=== PATIENT | female | born 1935 | race Hispanic/Latino ===

== ENCOUNTER 2018-01-17 14:52 | Outpatient (CLI) | payer MEDICARE ==
--- NOTE | 2018-01-17 16:27 | MRI ---
MRI LUMBAR SPINE 01/17/18 HISTORY: Left hip and leg pain, numbness for two months. s Multiplanar and multisequence noncontrast enhanced MRI images lumbar spine obtained. For the purposes of this dictation, the last freely mobile vertebral body will be considered to be th e L4 vertebral body. The lowest thoracic vertebral body which is visualized to have a rib originating from it will be considered to be the T12 vertebral body. This patient appears to have four nonribbearing lumbar type vertebrae which will be numbered L1 throu gh L4 with a transitional type L5 vertebral body seen. T11-12: Unremarkable. T12-L1: Unremarkable. L1-2: Unremarkable. L2-3: Unremarkable. L3-4: There is bilateral facet hypertrophy. This results in mild L3-4 central and lateral recess sten osis. The neural foramen are patent. L4-5: There is grade I anterolisthesis of L4 on L5 with severe facet hypertrophic and degenerative ch anges. This results in facet instability. There is severe central and lateral recess stenosis at L4-5 . There is moderate bilateral neural foraminal narrowing seen. IMPRESSION: L4-5 anterolisthesis with transitional significantly sacralized L5 vertebral level. These findings ar e not acute and likely not due to the patient's recent fall. These changes suggests chronic L4-5 face t degenerative changes. POS: [facility]
== END 2018-01-17 14:53 | disposition home or self-care (01) ==
LOC: BICMRI 14:52
PROVIDERS: ATTEND Family Medicine
DX: M54.5 Low back pain (principal); M43.16 Spondylolisthesis, lumbar region
CPT/HCPCS: 72148

== ENCOUNTER 2018-03-08 15:57 | Observation (INO) | payer MEDICARE ==
[2018-03-08 16:42] LABS: #Basophils 0.1 thou/uL (0.0-0.2); #Eosinphils 0.1 thou/uL (0.0-0.7); #Lymphocytes 2.1 thou/uL (1.20-3.40); #Monocytes 0.4 thou/uL (0.11-0.59); #Neutrophils 3.7 thou/uL (1.40-6.50); %Basophils 1.5 % (0.0-1.0); %Eosinophils 1.9 % (0.0-10.0); %Lymphocytes 32.9 % (21.0-51.0); %Monocytes 6.5 % (0.0-10.0); %Neutrophils 57.2 % (42.0-75.0); Hemoglobin 11.2 g/dL (12.0-16.0); Mean Corpuscular HGB CONC 31.8 g/dL (32.0-36.0); Mean Corpuscular Volume 94.5 fL (78.0-98.0); Mean Platelet Volume 7.5 fL (7.4-10.4); Platelet Count 242 thou/uL (130-400); RBC Distribution Width 14.4 % (11.5-14.5); Red Blood Cell (RBC) Count 3.74 mill/uL (4.20-5.40); White Blood Cell (WBC) Count 6.4 thou/uL (4.8-10.8)
[2018-03-08 16:51] LABS: ALT (SGPT) 15 U/L (8-55); AST (SGOT) 19 U/L (5-34); Albumin 4.2 g/dL (3.4-4.8); Alkaline Phosphatase 60 U/L (40-150); Anion Gap 15 mmol/L (10-20); BUN (Urea Nitrogen) 23 mg/dL (9.8-20.1); Bilirubin, Total 0.3 mg/dL (0.2-1.2); CK (CPK) 72 U/L (29-168); Calc. Creatinine Clearance 0 mL/min (70-130); Calcium 10.9 mg/dL (7.8-10.44); Carbon Dioxide 20 mmol/L (23-31); Chloride 106 mmol/L (98-107); Estimated GFR-MDRD 48; Glucose 160 mg/dL (83-110); Potassium 4.8 mmol/L (3.5-5.1); Protein, Total 7.2 g/dL (6.0-8.3); Sodium 136 mmol/L (136-145)
--- NOTE | 2018-03-08 17:06 | RAD ---
CHEST 1 VIEW: Date: 03/08/18 HISTORY: Chest pain. COMPARISON: 05/30/15. FINDINGS: Cardiac silhouette is magnified by projection. Pulmonary vasculature is unremarkable. Mediastinum mid line with aortic calcification and postoperative changes. No lobar consolidation or evidence of pneum othorax. IMPRESSION: 1. Atherosclerosis. 2. No active cardiopulmonary abnormalities are otherwise demonstrated. POS: [facility]
[2018-03-08] MEDS ORDERED: hydrALAZINE 20 MG/ML VIAL ONE (18:12)
--- NOTE | 2018-03-08 18:49 | PDOC.FPRHP ---
- History of Present Illness Chief Complaint: Heart palpitations History of Present Illness: 83 yo F with PMH HI s/p CABG, DM2, HTN, HLD, hypothyroid presents for evaluation of heart palpitations and HTN. She says she has had intermittent "heart fluttering" x4 days. Not associated w/ exertion. Resolves quickly and spontaneously. Denies CP, SOB, N/V. Says she has had to take "deep breaths" since yesterday and has increased burping. Notes this is similar presentation to 4 yrs ago when she had negative stress test, followed by cath showing 4 vessel disease and then CABG. BP elevated at home today [address] 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 Has had negative stress in past year. No cath since CABG. ED Course: tramadol, ASA, hydralazine 10 - Allergies/Adverse Reactions Allergies Allergy/AdvReac Type Severity Reaction Status Date / Time No Known Drug Allergies Allergy Verified 03/08/18 20:53 - Home Medications Medication Instructions Recorded Confirmed Type Brimonidine Tartrate [Brimonidine 1 drop R EYE BID 05/27/15 03/08/18 History Tartrate 0.15% Ophth Soln] Dorzolamide HCl/Timolol Maleat 1 drop R EYE BID 05/27/15 03/08/18 History [Dorzolamide HCl/Timolol Maleate Ophth] Latanoprost [Xalatan 0.005% Ophth 1 drop EA EYE HS 05/27/15 03/08/18 History Soln] Lisinopril [Zestril] 5 mg PO DAILY 05/27/15 03/08/18 History metFORMIN [Glucophage] 500 mg PO HS 05/27/15 03/08/18 History Aspirin [Ecotrin Regular Strength] 325 mg PO DAILY #0 tab 06/02/15 03/08/18 Rx Metoprolol Tartrate [Lopressor] 25 mg PO BID #0 tab 06/02/15 03/08/18 Rx Atorvastatin Calcium 20 mg PO HS 03/08/18 03/08/18 History Cyanocobalamin (Vitamin B-12) 1,500 mcg PO DAILY 03/08/18 03/08/18 History [Vitamin B-12] Levothyroxine Sodium 50 mcg PO DAILY 03/08/18 03/08/18 History - History PMHx: DM2, HLD, HTN, osteoporosis, CAD, HI 4 yrs ago, slipped disk, hypothyroid , glaucoma PSHx: cholecystectomy, hysterectomy, appendectomy, cataracts, CABG FHx: Brother-CAD/HI, CAD, DM, HTN on maternal side Social: No tobacco, alcohol, drug use. 47 years second hand smoke exposure - Review of Systems General: denies: fever/chills Respiratory: reports: shortness of breath. denies: cough Cardiovascular: reports: palpitation. denies: chest pain, edema Gastrointestinal: reports: other (burping). denies: nausea, vomiting, diarrhea , abdominal pain Skin: reports: other (easy bruising). denies: rashes Neurological: reports: other (tingling in legs). denies: weakness - Vital signs BP: 122/55 HR: 67 RR: 16 Tmax: 98 Pox: 98% on RA Wt: 51 kg - Physical Exam Constitutional: NAD, awake, alert and oriented HEENT: normocephalic and atraumatic Neck: trachea midline Heart: normal S1/S2, other (3/6 systolic murmur heard best @ mitral) Lungs: CTAB Abdomen: soft, non-tender, bowel sounds present Musculoskeletal: normal structure, normal tone Neurological: no focal deficit Skin: no rash/lesions, other Heme/Lymphatic: other (scattered bruises on UE) Psychiatric: normal mood and affect FMR H&P: Results - Labs Result Diagrams: 03/09/18 04:45 03/09/18 12:30 Lab results: WBC 6.4 thou/uL (4.8-10.8) 03/08/18 16:17 Hgb 11.2 g/dL (12.0-16.0) L 03/08/18 16:17 Hct 35.4 % (36.0-47.0) L 03/08/18 16:17 MCV 94.5 fL (78.0-98.0) 03/08/18 16:17 Plt Count 242 thou/uL (130-400) 03/08/18 16:17 Neutrophils % 57.2 % (42.0-75.0) 03/08/18 16:17 Sodium 136 mmol/L (136-145) 03/08/18 16:17 Potassium 4.8 mmol/L (3.5-5.1) 03/08/18 16:17 Chloride 106 mmol/L (98-107) 03/08/18 16:17 Carbon Dioxide 20 mmol/L (23-31) L 03/08/18 16:17 BUN 23 mg/dL (9.8-20.1) H 03/08/18 16:17 Creatinine 1.10 mg/dL (0.6-1.1) 03/08/18 16:17 Glucose 160 mg/dL (83-110) H 03/08/18 16:17 Calcium 10.9 mg/dL (7.8-10.44) H 03/08/18 16:17 Total Bilirubin 0.3 mg/dL (0.2-1.2) 03/08/18 16:17 AST 19 U/L (5-34) 03/08/18 16:17 ALT 15 U/L (8-55) 03/08/18 16:17 Alkaline Phosphatase 60 U/L (40-150) 03/08/18 16:17 Creatine Kinase 72 U/L (29-168) 03/08/18 16:17 Serum Total Protein 7.2 g/dL (6.0-8.3) 03/08/18 16:17 Albumin 4.2 g/dL (3.4-4.8) 03/08/18 16:17 FMR H&P: A/P - Problem List (1) Intermittent palpitations Status: Acute Code(s): R00.2 - PALPITATIONS (2) Hypothyroid Status: Acute Code(s): E03.9 - HYPOTHYROIDISM, UNSPECIFIED (3) CAD (coronary artery disease) Status: Acute Code(s): I25.10 - ATHSCL HEART DISEASE OF [place] CORONARY ARTERY W/O ANG PCTRS (4) Anemia Status: Acute Code(s): D64.9 - ANEMIA, UNSPECIFIED Qualifiers: Other causes of anemia: acute posthemorrhagic Comment: s/p 1 unit PRBC, continue to monitor transfuse prn (5) Glaucoma Status: Acute Code(s): H40.9 - UNSPECIFIED GLAUCOMA Comment: Home eye drops restarted (6) S/P CABG x 4 Status: Acute (7) HTN (hypertension) Status: Chronic Code(s): I10 - ESSENTIAL (PRIMARY) HYPERTENSION (8) Type 2 diabetes mellitus Status: Chronic Comment: Insulin sliding scale/levemir, close glucose monitoring. - Plan Heart palpitations, ACS rule out - Heart score 6 with significant PMH of CAD - No CP. EKG NSR. - trop neg x1, continue to trend - continuous cardiac monitoring on telemetry - pending d-dimer, TSH, mag, phos. Already on high intensity statin, will not repeat FLP. - has heart murmur, unknown when last echo performed - NPO @ midnight. Hold home BB. 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 Pt says she has had stress test within past year. Will discuss further workup with cardiology consult in am. Normocytic anemia - Hgb 11 - monitor on am CBC CAD s/p CABG 4 yrs ago - continue home statin, aspirin HTN - BP elevated in ED 198/78, decreased quickly with hydralazine 10. No end organ damage - continue home lisinopril, hold home metoprolol for now DM2 - continue home metformin Hypothyroid - continue home synthroid Glaucoma - continue home opthalmic drops Diet: NPO after midnight Ppx: Lovenox Dispo: admit to telemetry for observation, ACS rule out FMR H&P: Upper Level - Pertinent history 83 y/o F w/ PMHx of HTN, DM, HLD, SVT, and CAD w/ prior HI presents for eval of sxs of palpitations that started this past Tuesday which are similar to sxs she had prior to her previous HI and subsequent CABG. Denies any CP. Reports some intermittent SOB which is new for her that started yesterday. Denies any nausea/ vomitting/abdominal pain/diarrhea. Notes having to burp a lot. Also reports elevated BP prompting visit to the ER tonight. Reportedly SBP up to 215 and was 195 in the ER prior to admin of hydralazine. Also notes LE pain and hip pain. Sxs are intermittent in nature. Not exacerbated by movement. No relieving factors. Reports normal stress test within the past year. Also had normal stress prior to 4 vz disease found on cardiac catheterization. Reports recent echo and stress w/ linoleum installer Dr. Mae within the past year. - Pertinent findings BP 145/60 P 87 RR 19 O2sat 99% Trop - <0.01 Hgb - 11,2 MCV -94.5 Gluc - 160 Calc - 10.9 EKG - NSR rate 67, no t-wave inversions noted. Mild upward sloping ST-segments lead I and aVL w/o overt elevation consistent w/ strain. Q-waves Leads I and aVL CXR - Atherosclerosis. Otherwise NAD GEN: NAD, resting in bed comfortable CARD: RRR, 3/6 systolic ejection murmur all heart johnson. No rubs or gallops PULM: CTA-b/l, no wheezes rubs or rhonci GI: Soft, non-tender to palpation BSx4 EXT: No LE swelling noted. No palpable cords. - Plan Date/Time: 03/08/18 898 IFrancisco J MD, have evaluated this patient and agree with findings/plan as outlined by network internship resident. Pertinent changes/additions are listed here. 83 y/o F w/: 1) Atypical Chest Pain (HEART = 6) - No evidence of acute ischemia w/ normal cardiac enzymes and no signs of ischemia on EKG - Pt w/ multiple risk factors including known CAD, HTN, HLD, FHx, and DM - Pt does have palpitations w/ burping consistent w/ possible underlying dysarrythmias - Will monitor for this on continuous telemetry on the obs floor - No alarm sxs w/ no worsening w/ activity - Will touch base w/ cardiology in the AM to discuss repeat stress vs cardiac catheterization given normal stress recently per patient - Will check TSH, A1c, and mag/phos given palpitations - Cont. to trend cardiac enzymes w/ cardiac consultation in the AM - Will hold beta fela in the AM pending possible stress and make pt NPO 2) Other chronic problems per network internship note Assessment and Plan discussed w/ Dr. Wallace who is in agreement. Addendum - Attending - Attending Attestation Date/Time: 03/08/18 5320 I personally evaluated the patient and discussed the management with Dr. Howard and Dr. Billingsley I agree with the History, Examination, Assessment and Plan documented above with any addition or exceptions noted below. 83 yo female with past medical history of CAD s/p CABG presents with palpitations. Patient reports several days of intermittent palpitations. Patient states she is very active with daily activities. Denies CP, BEEBE, SOB, fatigue, or dizziness. Reports the only thing that slows her down is her back pain. Denies dizziness or other associated symptoms with palpitations. Concern due to past presentation with similar symptoms and diagnosed with HI. Patient states prior to that episode she underwent CV evaluation with negative stress. Presented with palpitations. Underwent LHC and was found to have 4V dz. Anxious that this is a similar picture. Reports up to date on cardiac evaluation included ECHO and negative stress testing recently. VS reviewed. Labs reviewed. Imaging reviewed. PE repeated by me. Agree with documentation above. 1. Palpitations with concern for ACS: EKG reviewed. Q waves in lateral leads. Mild ST depression (no significant) representing stress pattern as well in these leads. Negative CE x 1. No arrhythmia on tele. Will obs overnight. Monitor on tele. Trend enzymes. Discuss case with cards in AM. Heart = 6. Consider home event monitor. TSH WNL. 2. hx of CAD: Continue BB, ACEI, Statin, ASA. Adjust home meds based on chronic conditions. Iesha
[2018-03-08] MEDS ORDERED: traMADol HCl 50 MG TAB ONE (19:03)
[2018-03-08] MEDS ORDERED: Acetaminophen 325 MG TAB ONE (19:19)
[2018-03-08] MEDS ORDERED: Acetaminophen 325 MG TAB PO PRN (20:38)
[2018-03-08] MEDS ORDERED: Ondansetron ODT 4 MG TAB PO PRN (20:38)
[2018-03-08 21:04] VITALS: BMI 25.2
[2018-03-08 22:19] LABS: Hemoglobin A1c 6.6 % (4.0-6.0)
[2018-03-08 22:33] LABS: Magnesium 1.4 mg/dL (1.6-2.6); Phosphorus 2.5 mg/dL (2.3-4.7)
[2018-03-09 05:06] LABS: #Basophils 0.1 thou/uL (0.0-0.2); #Eosinphils 0.1 thou/uL (0.0-0.7); #Monocytes 0.6 thou/uL (0.11-0.59); #Neutrophils 4.1 thou/uL (1.40-6.50); %Basophils 0.9 % (0.0-1.0); %Eosinophils 1.7 % (0.0-10.0); %Lymphocytes 28.9 % (21.0-51.0); %Monocytes 8.7 % (0.0-10.0); %Neutrophils 59.8 % (42.0-75.0); Hemoglobin 10.6 g/dL (12.0-16.0); Mean Corpuscular HGB CONC 32.2 g/dL (32.0-36.0); Mean Corpuscular Hemoglobin 30.3 pg (27.0-31.0); Mean Corpuscular Volume 94.1 fL (78.0-98.0); Platelet Count 241 thou/uL (130-400); RBC Distribution Width 14.2 % (11.5-14.5); Red Blood Cell (RBC) Count 3.49 mill/uL (4.20-5.40); White Blood Cell (WBC) Count 6.8 thou/uL (4.8-10.8)
[2018-03-09 05:34] LABS: Anion Gap 12 mmol/L (10-20); BUN (Urea Nitrogen) 25 mg/dL (9.8-20.1); Calc. Creatinine Clearance 32 mL/min (70-130); Calcium 10.8 mg/dL (7.8-10.44); Carbon Dioxide 20 mmol/L (23-31); Chloride 111 mmol/L (98-107); Estimated GFR-MDRD 46; Glucose 111 mg/dL (83-110); Potassium 5.3 mmol/L (3.5-5.1); Sodium 138 mmol/L (136-145)
[2018-03-09] MEDS ORDERED: Levothyroxine Sodium 50 MCG TAB PO SCH (06:00)
[2018-03-09] MEDS ORDERED: Lactated Ringer's 1,000 ML IV SCH (06:30)
--- NOTE | 2018-03-09 06:34 | PDOC.FM ---
Addendum entered and electronically signed by Concepcion Whyte MD 03/09/18 09:30 : Plan: -Hypomag at 1.4, replaced. Original Note: - Subjective Subjective: NAEO. No palpitations. NO other complaints. NO wekaness. - Objective MAR Reviewed: Yes Vital Signs & Weight: Vital Signs (12 hours) Temp Pulse Resp BP Pulse Ox 03/09/18 04:52 98.9 F 74 14 142/64 H 100 03/08/18 23:33 98.5 F 76 18 101/52 L 94 L 03/08/18 20:07 97.9 F 88 17 116/53 L 98 Weight Weight 52.844 kg I&O: 03/07/18 03/08/18 03/09/18 06:59 06:59 06:59 Intake Total 360 Output Total 400 Balance -40 Result Diagrams: 03/09/18 04:45 03/09/18 12:30 Phys Exam - Physical Examination Constitutional: NAD HEENT: PERRLA, moist MMs Respiratory: no wheezing, clear to auscultation bilateral Cardiovascular: RRR, no significant murmur, no rub Neurological: non-focal, moves all 4 limbs Psychiatric: normal affect, A&O x 3 Dx/Plan (1) Type 2 diabetes mellitus Status: Chronic (2) Dyslipidemia Code(s): E78.5 - HYPERLIPIDEMIA, UNSPECIFIED Status: Chronic (3) HTN (hypertension) Code(s): I10 - ESSENTIAL (PRIMARY) HYPERTENSION Status: Chronic (4) Anemia Code(s): D64.9 - ANEMIA, UNSPECIFIED Status: Acute Qualifiers: Other causes of anemia: acute posthemorrhagic (5) S/P CABG x 4 Status: Acute (6) Intermittent palpitations Code(s): R00.2 - PALPITATIONS Status: Acute (7) Hypothyroid Code(s): E03.9 - HYPOTHYROIDISM, UNSPECIFIED Status: Acute (8) CAD (coronary artery disease) Code(s): I25.10 - ATHSCL HEART DISEASE OF [place] CORONARY ARTERY W/O ANG PCTRS Status: Acute - Plan Plan: 83 yo F with hypothyroidism, CAD s/p CABG x4, HTN, HLD, DM2 with new onset heart palpitations. Heart palpitations, ACS rule out - Heart score 6 with significant PMH of CAD as listed above - Per pt recent stress test and echo within last year that were normal, follows w/ Dr. Mae - neg trop x3 - continuous cardiac monitoring on telemetry, no events overnight - has heart murmur, unknown when last echo performed - NPO @ midnight. Hold home BB. 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 Pt says she has had stress test within past year. Will discuss with this morning stress vs. cath vs. medical mgmt - Pending CTA due to elevated ddimer TRI -likely prerenal -start on mIVF NS Hyperkalemia -5.3 -fluids -repeat base met Hypercalcemia -fluids, will trend Normocytic anemia - Hgb 11 - monitor on am CBC CAD s/p CABG 4 yrs ago - continue home statin, aspirin HTN - BP elevated in ED 198/78, decreased quickly with hydralazine 10 - continue home lisinopril, hold home metoprolol for now Dyslipidemia - see above DM2 - A1c 6.6 - continue home metformin Hypothyroid - continue home synthroid Glaucoma - continue home opthalmic drops Diet: NPO after Ppx: Lovenox Dispo: Will call cardiology for further recommendations. Pending CTA to r/o aortic dissection due to elevtaed ddimer. Hyperkalemia, will give fluids, repeat base met. Addendum - Attending - Attending Attestation Date/Time: 03/09/18 1501 I personally evaluated the patient and discussed the management with Dr. Whyte. Patient asymptomatic this morning and wanting to go home. I agree with the History, Examination, Assessment and Plan documented above with any addition or exceptions noted below. Palpitations- similar to when she was dx with CAD and required CABG- resolved overnight. No anomalies on telemetry. Appreciate cards recs Mild hyperkalemia and hypercalcemia- IVF and recheck improved. Stable for d/c pending cardiology recs.
[2018-03-09] MEDS ORDERED: Brimonidine Tartrate 0.2% Ophth Soln 5 ml Bottle R EYE SCH (09:00)
[2018-03-09] MEDS ORDERED: Lisinopril 5 MG TAB PO SCH (09:00)
[2018-03-09] MEDS ORDERED: Cyanocobalamin (Vitamin B-12) 1,000 MCG TAB PO SCH (09:00)
[2018-03-09] MEDS ORDERED: DorzolamidE/Timolol 2%/0.5% Ophth Soln 10 ml Bottle R EYE SCH (09:00)
[2018-03-09] MEDS ORDERED: Enoxaparin Sodium 40 MG/0.4 ML SYRINGE SC SCH (09:00)
[2018-03-09] MEDS ORDERED: Aspirin 325 mg Enteric Coated Tablet PO SCH (09:00)
[2018-03-09] MEDS ORDERED: Sodium Chloride 0.9% 1,000 ML IV SCH (09:30)
[2018-03-09] MEDS ORDERED: Iopamidol 370 76% 100 ML VIAL ONE (10:18)
[2018-03-09 10:32] LABS: Cardiac Risk 2.5 (Less than 4.5)
--- NOTE | 2018-03-09 10:34 | CT ---
CTA CHEST WITH CONTRAST: Multiple axial tomograms were obtained through the chest following a pulmonary angio protocol with mu ltiplanar reconstruction and 3D post processing. INDICATION: Elevated D-dimer. Shortness of breath. Assess for pulmonary embolus. FINDINGS: Pulmonary arteries show adequate opacification. There is no evidence of pulmonary embolus identified . Thoracic aorta shows atherosclerotic change. No evidence of aneurysm or dissection. The lung johnson show chronic parenchymal changes. No evidence of infiltrate or effusion. Mediastinum unremarkable. No adenopathy. Images through the upper abdomen unremarkable. Osseous structures unremarkable. IMPRESSION: 1. No evidence of pulmonary embolus. 2. No acute lung process. POS: [facility]
[2018-03-09 12:12] VITALS: BP 112/56; TEMP 98.8
[2018-03-09 12:51] LABS: Anion Gap 12 mmol/L (10-20); BUN (Urea Nitrogen) 20 mg/dL (9.8-20.1); Calc. Creatinine Clearance 37 mL/min (70-130); Calcium 9.6 mg/dL (7.8-10.44); Carbon Dioxide 20 mmol/L (23-31); Chloride 111 mmol/L (98-107); Estimated GFR-MDRD 55; Glucose 91 mg/dL (83-110); Potassium 4.8 mmol/L (3.5-5.1); Sodium 138 mmol/L (136-145)
[2018-03-09] MEDS ORDERED: Atorvastatin Calcium 20 MG TAB PO SCH ×2 (21:00)
[2018-03-09] MEDS ORDERED: Latanoprost 0.005% Ophth Soln 2.5 ml Bottle EA EYE SCH (21:00)
[2018-03-09] MEDS ORDERED: metFORMIN 500 MG TAB PO SCH (21:00)
--- NOTE | 2018-03-11 23:34 | EKG ---
Test Reason : Blood Pressure : / mmHG Vent. Rate : 067 BPM Atrial Rate : 067 BPM P-R Int : 178 ms QRS Dur : 092 ms QT Int : 378 ms P-R-T Axes : 023 -15 033 degrees QTc Int : 399 ms Normal sinus rhythm Possible Lateral infarct , age undetermined Abnormal ECG Confirmed by INOCENCIO LEVI DO ([id number]), editor farm journal JOSE TAVERAS ([id number]) on 03/11/2018 11:33:30 PM Referred By: Confirmed By:INOCENCIO LEVI DO
== END 2018-03-09 16:22 | disposition home or self-care (01) ==
LOC: ERS 15:57 → 2SW 18:34
PROVIDERS: ADMIT Student in an Organized Health Care Education/Training Program; ATTEND Student in an Organized Health Care Education/Training Program
DX: R00.2 Palpitations (principal); E03.9 Hypothyroidism, unspecified; I25.10 Atherosclerotic heart disease of native coronary artery without angina pectoris; I25.2 Old myocardial infarction; I10 Essential (primary) hypertension; E78.5 Hyperlipidemia, unspecified; R07.89 Other chest pain; M81.0 Age-related osteoporosis without current pathological fracture; H40.9 Unspecified glaucoma; D62 Acute posthemorrhagic anemia; N17.9 Acute kidney failure, unspecified; E11.9 Type 2 diabetes mellitus without complications; E83.52 Hypercalcemia; E87.5 Hyperkalemia; Z79.82 Long term (current) use of aspirin; Z79.84 Long term (current) use of oral hypoglycemic drugs; Z79.899 Other long term (current) drug therapy; Z77.22 Contact with and (suspected) exposure to environmental tobacco smoke (acute) (chronic); Z95.1 Presence of aortocoronary bypass graft
CPT/HCPCS: 71045; 71275; 80048 ×2; 80061; 82310; 82550; 82962; 83036; 83735; 83880; 83970; 84100; 84484 ×2; 85025; 85379; 93005; 94760 ×2; 96361; 96372; 96374; 99285; G0378 ×2; 36415; 36416; 80053; 84443; J0360; J1650; J3475; J7050; Q9967

== ENCOUNTER 2018-03-20 08:51 | Outpatient (CLI) | payer MEDICARE ==
--- NOTE | 2018-03-20 10:36 | BD ---
DEXA BONE DENSITY STUDY: History: Post-menopausal. Lumbar Spine: BMD (g/cm2) L1 0.856 T-Score: -1.2 L2 0.785 T-Score: -2.2 L3 0.802 T-Score: -2.6 L4 0.791 T-Score: -2.5 L1-L4 0.809 T-Score: -2.2 Femoral Neck: 0.554 T-Score: -2.7 Total Femur: 0.716 T-Score: -1.9 Impression: Osteoporosis left femoral neck and osteopenia of the lumbar spine. Of note, the L3 and L4 vertebral b odies fall within osteoporosis range. POS: [facility]
== END 2018-03-20 08:52 | disposition home or self-care (01) ==
LOC: BICMAMMO 08:51
PROVIDERS: ATTEND Internal Medicine Rheumatology
DX: M81.0 Age-related osteoporosis without current pathological fracture (principal); M85.88 Other specified disorders of bone density and structure, other site
CPT/HCPCS: 77080

== ENCOUNTER 2018-11-08 15:12 | Outpatient (CLI) | payer MEDICARE ==
--- NOTE | 2018-11-08 15:50 | ULT ---
LIMITED LEFT LOWER LEG ULTRASOUND: DATE: 11/08/2018. PROVIDED CLINICAL HISTORY: Left foreleg mass. FINDINGS: Limited sonographic interrogation of the left foreleg in the region of clinical concern demonstrates no evidence for a focal fluid collection or solid mass. If there is consistent clinical concern, con welfare administrator MRI. IMPRESSION: As above. POS: [facility]
== END 2018-11-08 15:13 | disposition home or self-care (01) ==
LOC: BICULT 15:12
PROVIDERS: ATTEND Specialist
DX: D17.24 Benign lipomatous neoplasm of skin and subcutaneous tissue of left leg (principal)
CPT/HCPCS: 76999

== ENCOUNTER 2019-12-10 21:40 | Emergency (ER) | payer MEDICARE ==
[2019-12-10 22:10] LABS: #Eosinphils 0.2 thou/uL (0.0-0.7); #Lymphocytes 2.7 thou/uL (1.20-3.40); #Monocytes 0.6 thou/uL (0.11-0.59); %Basophils 0.4 % (0.0-1.0); %Eosinophils 2.9 % (0.0-10.0); %Lymphocytes 36.2 % (21.0-51.0); %Monocytes 7.7 % (0.0-10.0); %Neutrophils 52.8 % (42.0-75.0); Hemoglobin 11.1 g/dL (12.0-16.0); Mean Corpuscular HGB CONC 33.5 g/dL (32.0-36.0); Mean Corpuscular Hemoglobin 31.7 pg (27.0-31.0); Mean Corpuscular Volume 94.7 fL (78.0-98.0); Mean Platelet Volume 7.1 fL (7.4-10.4); Platelet Count 266 thou/uL (130-400); RBC Distribution Width 14.9 % (11.5-14.5); Red Blood Cell (RBC) Count 3.49 mill/uL (4.20-5.40); White Blood Cell (WBC) Count 7.6 thou/uL (4.8-10.8)
[2019-12-10 22:35] LABS: ALT (SGPT) 13 U/L (8-55); AST (SGOT) 21 U/L (5-34); Albumin 4.1 g/dL (3.4-4.8); Alkaline Phosphatase 64 U/L (40-110); Anion Gap 13 mmol/L (10-20); BUN (Urea Nitrogen) 22 mg/dL (9.8-20.1); Bilirubin, Total 0.3 mg/dL (0.2-1.2); Calc. Creatinine Clearance 0 mL/min (70-130); Calcium 10.7 mg/dL (7.8-10.44); Carbon Dioxide 21 mmol/L (23-31); Chloride 108 mmol/L (98-107); Estimated GFR-MDRD 43; Globulin 2.8 g/dL (2.4-3.5); Glucose 93 mg/dL (83-110); Magnesium 1.4 mg/dL (1.6-2.6); Potassium 4.4 mmol/L (3.5-5.1); Protein, Total 6.9 g/dL (6.0-8.3); Sodium 138 mmol/L (136-145)
[2019-12-10 23:49] LABS: Bilirubin Negative (Negative); Blood, Urine Negative (Negative); Clarity Clear (Clear); Glucose, Urine (Dipstick) Normal (Negative); Ketone, Urine Negative (Negative); Leukocyte 500 Leu/uL (Negative); Nitrite Negative (Negative); Protein, Urine (Dipstick) Negative (Neg-Trace); RBC/HPF 0-3 HPF (0-3); Specific Gravity, Urine 1.008 (1.002-1.036); Squamous Epithelial 0-3 HPF (0-3); Urobilinogen Normal mg/dL (Less than 2); pH, Urine 5.5 (5.0-9.0)
[2019-12-10 23:51] LABS: Bacteria/HPF 1+ HPF (None Seen)
--- NOTE | 2019-12-11 05:41 | RAD ---
PORTABLE CHEST: Date: 12/10/2019 INDICATION: Palpitations. COMPARISON: 03/08/2018. FINDINGS: Mild cardiomegaly with postop sternotomy change. Mild vascular engorgement. Mild interstitial congest ion without overt edema. No effusion. No infiltrate. IMPRESSION: Cardiomegaly and mild vascular congestion. POS: [facility]
== END 2019-12-11 00:23 | disposition home or self-care (01) ==
LOC: ERS 21:40
DX: R00.2 Palpitations (principal); R00.1 Bradycardia, unspecified; T50.905A Adverse effect of unspecified drugs, medicaments and biological substances, initial encounter; E83.42 Hypomagnesemia; N39.0 Urinary tract infection, site not specified; E11.9 Type 2 diabetes mellitus without complications; E78.5 Hyperlipidemia, unspecified; E78.00 Pure hypercholesterolemia, unspecified; I10 Essential (primary) hypertension; M81.0 Age-related osteoporosis without current pathological fracture; Z79.84 Long term (current) use of oral hypoglycemic drugs; Z79.82 Long term (current) use of aspirin; Z79.899 Other long term (current) drug therapy
CPT/HCPCS: 36415; 71045; 80053; 81003; 81015; 83735; 83880; 84443; 84484; 85025; 93005

== ENCOUNTER 2021-05-25 20:35 | Observation (INO) | payer MEDICARE ==
[2021-05-25 21:21] LABS: #Basophils 0.1 thou/uL (0.0-0.2); #Eosinphils 0.3 thou/uL (0.0-0.7); #Lymphocytes 2.3 thou/uL (1.20-3.40); #Monocytes 0.7 thou/uL (0.11-0.59); #Neutrophils 3.4 thou/uL (1.40-6.50); %Eosinophils 3.8 % (0.0-10.0); %Lymphocytes 34.7 % (21.0-51.0); %Monocytes 10.3 % (0.0-10.0); %Neutrophils 50.2 % (42.0-75.0); Hemoglobin 11.2 g/dL (12.0-16.0); Mean Corpuscular HGB CONC 33.4 g/dL (32.0-36.0); Mean Corpuscular Hemoglobin 34.1 pg (27.0-31.0); Mean Platelet Volume 6.6 fL (7.4-10.4); Platelet Count 267 thou/uL (130-400); RBC Distribution Width 12.3 % (11.5-14.5); Red Blood Cell (RBC) Count 3.28 mill/uL (4.20-5.40); White Blood Cell (WBC) Count 6.7 thou/uL (4.8-10.8)
[2021-05-25 21:35] LABS: ALT (SGPT) 11 U/L (8-55); AST (SGOT) 17 U/L (5-34); Albumin 4.3 g/dL (3.4-4.8); Alkaline Phosphatase 118 U/L (40-110); Anion Gap 14 mmol/L (10-20); BUN (Urea Nitrogen) 24 mg/dL (9.8-20.1); Bilirubin, Total 0.3 mg/dL (0.2-1.2); Calc. Creatinine Clearance 0 mL/min (70-130); Calcium 10.5 mg/dL (7.8-10.44); Carbon Dioxide 21 mmol/L (23-31); Chloride 106 mmol/L (98-107); Globulin 2.8 g/dL (2.4-3.5); Glucose 113 mg/dL (83-110); Potassium 5.1 mmol/L (3.5-5.1); Protein, Total 7.1 g/dL (5.8-8.1); Sodium 136 mmol/L (136-145)
[2021-05-25] MEDS ORDERED: Acetaminophen 325 MG TAB PO PRN (22:46)
[2021-05-25] MEDS ORDERED: Calcium Carbonate 500 MG ChewTAB PO PRN (22:46)
[2021-05-25 23:34] VITALS: BMI 24.0
[2021-05-25] MEDS ORDERED: hydrALAZINE 20 MG/ML VIAL SLOW IVP PRN (23:37)
[2021-05-25] MEDS: Lidocaine 5% Patch TD SCH (23:38)
[2021-05-26 00:45] LABS: Magnesium 2.2 mg/dL (1.6-2.6)
[2021-05-26 01:10] LABS: Troponin I Less than 0.010 ng/mL (< 0.028)
[2021-05-26 05:01] LABS: #Eosinphils 0.2 thou/uL (0.0-0.7); #Lymphocytes 2.1 thou/uL (1.20-3.40); #Monocytes 0.8 thou/uL (0.11-0.59); %Basophils 0.4 % (0.0-1.0); %Eosinophils 3.4 % (0.0-10.0); %Lymphocytes 29.2 % (21.0-51.0); %Monocytes 11.4 % (0.0-10.0); %Neutrophils 55.7 % (42.0-75.0); Hemoglobin 10.3 g/dL (12.0-16.0); Mean Corpuscular HGB CONC 32.4 g/dL (32.0-36.0); Mean Corpuscular Hemoglobin 33.3 pg (27.0-31.0); Mean Platelet Volume 6.6 fL (7.4-10.4); Platelet Count 269 thou/uL (130-400); RBC Distribution Width 12.4 % (11.5-14.5); Red Blood Cell (RBC) Count 3.08 mill/uL (4.20-5.40); White Blood Cell (WBC) Count 7.2 thou/uL (4.8-10.8)
[2021-05-26 05:15] LABS: ALT (SGPT) 10 U/L (8-55); AST (SGOT) 14 U/L (5-34); Albumin 3.6 g/dL (3.4-4.8); Alkaline Phosphatase 88 U/L (40-110); Anion Gap 11 mmol/L (10-20); BUN (Urea Nitrogen) 23 mg/dL (9.8-20.1); Bilirubin, Total 0.3 mg/dL (0.2-1.2); Calc. Creatinine Clearance 24 mL/min (70-130); Calcium 9.9 mg/dL (7.8-10.44); Carbon Dioxide 21 mmol/L (23-31); Chloride 112 mmol/L (98-107); Globulin 2.3 g/dL (2.4-3.5); Glucose 98 mg/dL (83-110); Potassium 5.2 mmol/L (3.5-5.1); Protein, Total 5.9 g/dL (5.8-8.1); Sodium 139 mmol/L (136-145)
[2021-05-26] MEDS: Levothyroxine Sodium 50 MCG TAB PO SCH (05:56)
[2021-05-26 07:05] LABS: Magnesium 2.1 mg/dL (1.6-2.6)
[2021-05-26 07:17] LABS: Phosphorus 1.7 mg/dL (2.3-4.7)
[2021-05-26] MEDS ORDERED: Lisinopril 5 MG TAB PO SCH (09:00)
[2021-05-26] MEDS: Enoxaparin Sodium 30 MG/0.3 ML SYRINGE SC SCH (09:00)
[2021-05-26] MEDS ORDERED: Sodium Phosphate 15 MMOL in Sodium Chloride 0.9% 250 ML 250 ML IVPB SCH (09:00)
[2021-05-26] MEDS: Aspirin 325 mg Enteric Coated Tablet PO SCH (09:00)
[2021-05-26] MEDS ORDERED: Metoprolol Tartrate 25 MG TAB PO SCH (09:00)
[2021-05-26 11:49] LABS: SARS-CoV-2 PCR by NAA Not Detected (NotDetected)
[2021-05-26] MEDS: Transdermal Patch Removal TOP SCH (12:00)
[2021-05-26] MEDS: DorzolamidE/Timolol 2%/0.5% Ophth Soln 10 ml Bottle R EYE SCH ×2 (14:11→23:20)
[2021-05-26] MEDS: Cyanocobalamin (Vitamin B-12) 1,000 MCG TAB PO SCH (14:21)
[2021-05-26] MEDS ORDERED: metFORMIN 500 MG TAB PO SCH (21:00)
[2021-05-26] MEDS ORDERED: Latanoprost 0.005% Ophth Soln 2.5 ml Bottle EA EYE SCH (21:00)
[2021-05-26] MEDS ORDERED: Atorvastatin Calcium 20 MG TAB PO SCH (21:00)
[2021-05-26] MEDS: Lidocaine 5% Patch TD SCH (23:21)
[2021-05-27] MEDS: Levothyroxine Sodium 50 MCG TAB PO SCH (05:40)
[2021-05-27] MEDS: Cyanocobalamin (Vitamin B-12) 1,000 MCG TAB PO SCH (07:39)
[2021-05-27] MEDS: Aspirin 325 mg Enteric Coated Tablet PO SCH (07:39)
[2021-05-27] MEDS: DorzolamidE/Timolol 2%/0.5% Ophth Soln 10 ml Bottle R EYE SCH (07:41)
[2021-05-27] MEDS: Enoxaparin Sodium 30 MG/0.3 ML SYRINGE SC SCH (07:41)
[2021-05-27 11:47] LABS: Anion Gap 14 mmol/L (10-20); BUN (Urea Nitrogen) 25 mg/dL (9.8-20.1); Calc. Creatinine Clearance 24 mL/min (70-130); Calcium 9.8 mg/dL (7.8-10.44); Carbon Dioxide 17 mmol/L (23-31); Chloride 110 mmol/L (98-107); Glucose 128 mg/dL (83-110); Magnesium 1.8 mg/dL (1.6-2.6); Phosphorus 2.5 mg/dL (2.3-4.7); Potassium 5.1 mmol/L (3.5-5.1); Sodium 136 mmol/L (136-145)
[2021-05-27 11:49] VITALS: BP 114/52; TEMP 97.9
[2021-05-27] MEDS ORDERED: Magnesium 2 GM/50 ML 2 GM in Premix Bag 1 BAG IVPB SCH (12:15)
[2021-05-27] MEDS: Transdermal Patch Removal TOP SCH (12:49)
[2021-05-28 14:14] LABS: A/G Ratio 1.3 (0.7-1.7); Albumin 3.4 g/dL (2.9-4.4); Alpha 1 0.2 g/dL (0.0-0.4); Alpha 2 0.8 g/dL (0.4-1.0); Beta 0.9 g/dL (0.7-1.3); Gamma 0.7 g/dL (0.4-1.8); Globulin, Total 2.7 g/dL (2.2-3.9); M-Spike Not Observed g/dL (Not Observed)
== END 2021-05-27 14:00 | disposition home or self-care (01) ==
LOC: ERS 20:35 → 2SW 22:23
PROVIDERS: ADMIT Emergency Medicine; ATTEND Emergency Medicine
DX: I44.1 Atrioventricular block, second degree (principal); I25.10 Atherosclerotic heart disease of native coronary artery without angina pectoris; E83.39 Other disorders of phosphorus metabolism; I12.9 Hypertensive chronic kidney disease with stage 1 through stage 4 chronic kidney disease, or unspecified chronic kidney disease; E11.22 Type 2 diabetes mellitus with diabetic chronic kidney disease; N18.32 Chronic kidney disease, stage 3b; D63.1 Anemia in chronic kidney disease; E03.9 Hypothyroidism, unspecified; E78.5 Hyperlipidemia, unspecified; E87.5 Hyperkalemia; R00.1 Bradycardia, unspecified; Z79.82 Long term (current) use of aspirin; Z79.84 Long term (current) use of oral hypoglycemic drugs; Z79.890 Hormone replacement therapy; Z79.899 Other long term (current) drug therapy; Z95.1 Presence of aortocoronary bypass graft; Z20.822 Contact with and (suspected) exposure to COVID-19
CPT/HCPCS: 71045; 80048; 80053; 82962 ×2; 83735 ×3; 84100 ×2; 84165; 84484; 85025; 93005; 96372; 96374; 96375 ×2; 97139 ×2; 99285; G0378 ×4; U0003; U0005; 36415; 36416; 84443; J0360; J1650; J3475; J7050

== ENCOUNTER 2021-06-23 14:35 | Outpatient (CLI) | payer MEDICARE | END 2021-06-23 14:36 | disposition home or self-care (01) | LOC: BICULT 14:35 | PROVIDERS: ATTEND Internal Medicine Nephrology | DX: N18.30 Chronic kidney disease, stage 3 unspecified (principal); Z95.0 Presence of cardiac pacemaker; N28.89 Other specified disorders of kidney and ureter | CPT/HCPCS: 71046; 76770 ==